=== PATIENT | male | born 1945 | race Caucasian/White ===

== ENCOUNTER → 2017-01-08 | Outpatient (CLI) | payer OTHER, MEDICARE | LOC: BHFA 13:15 | PROVIDERS: ATTEND Internal Medicine Interventional Cardiology | DX: I10 Essential (primary) hypertension (principal); I25.10 Atherosclerotic heart disease of native coronary artery without angina pectoris ==

== ENCOUNTER → 2017-02-05 | Outpatient (CLI) | payer OTHER, MEDICARE ==
[~2017-02-05] MED LIST: IOPAMIDOL (ISOVUE 370) 100 ML BTL IV ONE
== END ==
LOC: FIMAGING 08:51
PROVIDERS: ATTEND Physician Assistant Medical
DX: I71.2 Thoracic aortic aneurysm, without rupture (principal); I25.10 Atherosclerotic heart disease of native coronary artery without angina pectoris; K44.9 Diaphragmatic hernia without obstruction or gangrene
CPT/HCPCS: 71275; Q9967

== ENCOUNTER 2018-01-20 13:11 | Emergency (ER) | payer OTHER, MEDICARE ==
--- NOTE | 2018-01-20 15:28 | EDPHY ---
H & P Stated Complaint: Chronic Joint Pain, Poss Withdrawal from oxycontin Time Seen by Provider: 01/20/18 14:35 HPI/ROS: CHIEF COMPLAINT: This is a 72-year-old male with a history of chronic pain both neuropathy and joint painwho presents complaining of joint pain. He states that he has run out of his pain medication. He had been taking Percocet 10/325 for pain but was switched to Oxycontin ER 40 mg PO BID last month. He ran out of this medication about five days ago. He has taken a few Percocet since then. He also has a history of alcohol abuse, drinking 5-6 alcoholic beverages daily, starting in the morning. His daughter became concerned this morning after speaking with him. She was concerned about withdrawal and about his mental state. Reportedly he expressed some despair. He denies suicidality to me. He has an appointment with his psychologist today and is seeing a pain specialist for the first time tomorrow. He has not had abdominal pain or vomiting. He denies diarrhea. He does describe joint pain, no muscle pain. HISTORY OF PRESENT ILLNESS: REVIEW OF SYSTEMS: A ten system review of systems was performed and is negative with the exception of the items mentioned in the HPI. Past medical history: 1. Coronary artery disease status post stenting 2. Hypertension 3. Chronic pain with chronic opiate dependence 4. Neuropathy 5. Alcohol abuse Past surgical history: 1. Bilateral knee replacements 2. Coronary artery stenting Social history: Former restaurant otr owner operator. --his has Parkinson's disease. He lives with his and his 46-year-old son who helps with household duties. He smokes cigarettes (started smoking at age 65). He smokes marijuana occasionally. No illicit drugs. He drinks at least 5-6 alcoholic beverages daily and starts in the morning. Opiates as above. General Appearance: Alert. Vital signs reviewed. HR 55, BP 125/62. Eyes: Pupils equal and round 3mm, bilateral conjunctival injection, no discharge, no watering. Anicteric. ENT, Mouth: Mucous membranes are moist, no oropharyngeal erythema or edema. Neck: No lymphadenopathy, supple. Respiratory: Lungs are clear to auscultation; no wheezes, rales, or rhonchi. Cardiovascular: Regular rate and rhythm; no murmur, rub, or gallop. Gastrointestinal: Abdomen is soft and nontender, no masses or organomegaly, bowel sounds normal. Skin: Warm and dry, no rashes on exposed skin, normal color. Scattered bruises forearms. Back: Nontender to palpation over the thoracolumbar spine. No CVAT. Extremities: No lower extremity edema, no calf tenderness or swelling. Neurological: Alert and oriented. Moving all four extremities easily and equally. Psychiatric: Normal affect. - Personal History Current Tetanus Diphtheria and Acellular Pertussis (TDAP): Yes - Medical/Surgical History Hx Asthma: No Hx Chronic Respiratory Disease: No Hx Diabetes: No Hx Cardiac Disease: Yes Hx Renal Disease: No Hx Cirrhosis: No Hx Alcoholism: Yes Hx HIV/AIDS: No Hx Splenectomy or Spleen Trauma: No Other PMH: double knee replacement, chronic back pain, etoh abuse, hypertension , cardiac stent, neuropathy - Social History Smoking Status: Current every day smoker Constitutional: Initial Vital Signs Temperature (C) 36.7 C 01/20/18 13:16 Heart Rate 55 L 01/20/18 13:16 Respiratory Rate 18 01/20/18 13:16 Blood Pressure 125/62 H 01/20/18 13:16 O2 Sat (%) 93 01/20/18 13:16 O2 Delivery Mode Room Air Allergies/Adverse Reactions: No Known Allergies Allergy (Unverified 01/20/18 13:14) Home Medications: Medication Instructions Recorded Aspirin 01/20/18 Hydrochlorothiazide 01/20/18 Lisinopril 01/20/18 Percocet 5/325 (*) 01/20/18 oxyCODONE HCL/ACETAMINOPHEN 1 each PO Q4-6PRN PRN #10 tablet 01/20/18 [Percocet 10-325 mg Tablet] Medical Decision Making ED Course/Re-evaluation: Chronic opiate dependence, out of medication. This patient has been taking opiates, in high doses, for years. He also drinks alcohol daily. He has an appointment tomorrow at a pain clinic--his PCP, Dr. Orta, has been prescribing his pain medications to date. He has a psychologist that he sees. I do not see obvious signs of opiate withdrawal such as pinpoint pupils, watery eyes, vomiting, restlessness, piloerection, diaphoreses. . . . but do not feel that he should go cold turkey. He does not want to quit opiates (or alcohol). I will write a prescription for Percocet for today only. He understands that he cannot receive more opiates from the ED. I do not find him to be suicidal or homicidal. His family agrees that he is safe to return home and that an emergency mental health evaluation is not needed. He has good family support, an outpatient psychologist, and contracts with me for safety. Departure - Departure Disposition: Home, Routine, Self-Care Clinical Impression: Chronic pain Qualifiers: Chronic pain type: chronic pain syndrome Qualified Code(s): G89.4 - Chronic pain syndrome Condition: Fair Instructions: Chronic Pain (ED) Additional Instructions: Keep your appointment with the Pain Clinic tomorrow. Make sure that the doctor that you see understands that you do not have much pain medication at home. You will not be able to receive another prescription for opiate pain medication from the emergency department. If you have any thoughts of harming yourself please call a family member, the emergency department, 911--call someone. Referrals: Jose Orta DO [Primary Care Provider] - As per Instructions Stand Alone Forms: Narcotic Guidelines Prescriptions: oxyCODONE HCL/ACETAMINOPHEN [Percocet 10-325 mg Tablet] 1 each PO Q4-6PRN PRN # 10 tablet PRN Reason: severe pain
[2018-01-20 15:44] VITALS: BP 131/67
== END 2018-01-20 15:44 | disposition home or self-care (01) ==
DX: G89.4 Chronic pain syndrome (principal); F11.20 Opioid dependence, uncomplicated; I25.10 Atherosclerotic heart disease of native coronary artery without angina pectoris; I10 Essential (primary) hypertension; Z95.5 Presence of coronary angioplasty implant and graft; F17.200 Nicotine dependence, unspecified, uncomplicated